=== PATIENT | female | born 1995 | race Two or more races ===

== ENCOUNTER 2018-07-31 19:31 | Emergency (ER) | payer OTHER ==
[2018-07-31] MEDS ORDERED: IBUPROFEN 600 MG TAB PO ONE (20:26)
[2018-07-31] MEDS ORDERED: CYCLOBENZAPRINE 10 MG TAB PO ONE (20:47)
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
[2018-07-31 21:08] VITALS: BP 117/68
== END 2018-07-31 21:10 | disposition home or self-care (01) ==
DX: S29.019A Strain of muscle and tendon of unspecified wall of thorax, initial encounter (principal); S16.1XXA Strain of muscle, fascia and tendon at neck level, initial encounter; V49.50XA Passenger injured in collision with unspecified motor vehicles in traffic accident, initial encounter; Y92.410 Unspecified street and highway as the place of occurrence of the external cause; Y93.9 Activity, unspecified; Y99.9 Unspecified external cause status